=== PATIENT | female | born 1965 | race Caucasian/White ===

== ENCOUNTER 2020-04-20 15:05 | Outpatient (CLI) | payer OTHER, BC, SELFPAY ==
--- NOTE | ~2020-04-20 | MM_ITS ---
EXAMINATION: MM screening butch BI w tal HISTORY: Screening mammogram, interval breast implant removal TECHNIQUE: Craniocaudal and mediolateral oblique 3-D tomosynthesis images were obtained and synthetic 2-D images were generated. CAD analysis was submitted and interpreted. COMPARISON: 12/20/2018, 07/18/2017, 03/16/2016 BREAST PARENCHYMAL COMPOSITION: The breasts are almost entirely fatty. FINDINGS: The breast implants have been removed. There is no evidence of suspicious mass, calcificati on, or architectural distortion to suggest malignancy in either breast. There has been no suspicious interval change. IMPRESSION: 1. No mammographic evidence of malignancy. 2. Recommend routine screening mammography in one year. BI-RADS Category 1: Negative Reviewed, dictated and finalized at location A. ET PRESSMAN
== END 2020-04-20 15:06 | disposition home or self-care (01) ==
LOC: ANHIMG 15:08
PROVIDERS: PCP Family Medicine; Visit Provider Obstetrics & Gynecology
DX: Z12.31 Encounter for screening mammogram for malignant neoplasm of breast (principal)
CPT/HCPCS: 77063; 77067

== ENCOUNTER → 2021-04-17 10:53 | Outpatient (CLI) | payer OTHER, BC, SELFPAY ==
--- NOTE | ~2021-04-17 | US_ITS ---
EXAMINATION: US soft tissue LE RT DATE: 04/17/2021 11:57 INDICATION: Focal soft tissue swelling in the right lower limb medial to the ankle. TECHNIQUE: Multiple grayscale and Doppler ultrasound images of the right lower limb were obtained. COMPARISON: None FINDINGS: In the patient's area of concern, there is a 3.5 x 2.5 x 3.1 cm heterogeneous, predominantl y hyperechoic mass. IMPRESSION: 1. 3.5 cm mass medial to the right ankle, which may be benign or less likely malignant. MRI without a nd with contrast is recommended. Reviewed, dictated and finalized at location A. R CUTTER IMPRESSION: 1. 3.5 cm mass medial to the right ankle, which may be benign or less likely ma lignant. MRI without and with contrast is recommended.
== END ==
PROVIDERS: PCP Family Medicine; Visit Provider Physician Assistant Medical
DX: M25.871 Other specified joint disorders, right ankle and foot (principal); M79.89 Other specified soft tissue disorders
CPT/HCPCS: 76882

== ENCOUNTER 2021-04-22 16:58 | Outpatient (CLI) | payer OTHER, BC, SELFPAY ==
--- NOTE | ~2021-04-22 | MM_ITS ---
EXAMINATION: MM screening [facility] BI w tal HISTORY: Screening mammogram TECHNIQUE: Craniocaudal and mediolateral oblique 3-D tomosynthesis images were obtained and synthetic 2-D images were generated. CAD analysis was submitted and interpreted. COMPARISON: 04/20/2020, 12/20/2018 BREAST PARENCHYMAL COMPOSITION: The breasts are almost entirely fatty. FINDINGS: There is no evidence of suspicious mass, calcification, or architectural distortion to sugg est malignancy in either breast. There has been no suspicious interval change. IMPRESSION: 1. No mammographic evidence of malignancy. 2. Recommend routine screening mammography in one year. BI-RADS Category 1: Negative Reviewed, dictated and finalized at location A. T MAKER
== END 2021-04-22 16:59 | disposition home or self-care (01) ==
PROVIDERS: PCP Family Medicine; Visit Provider Obstetrics & Gynecology
DX: Z12.31 Encounter for screening mammogram for malignant neoplasm of breast (principal)
CPT/HCPCS: 77063; 77067

== ENCOUNTER → 2021-05-07 15:24 | Outpatient (CLI) | payer OTHER, BC, SELFPAY ==
--- NOTE | ~2021-05-07 | MR_ITS ---
EXAMINATION: MR ankle RT wo/w con DATE: 05/07/2021 16:33 INDICATION: Right ankle lump. TECHNIQUE: Magnetic resonance imaging (MRI) of the right ankle was performed without and with 19 mm M ultiHance intravenous contrast. Sequences included axial, coronal, and sagittal T2-weighted FS FSE an d T1-weighted FSE, axial T1-weighted FS FSE, and axial and sagittal postcontrast T1-weighted FS FSE. COMPARISON: Ultrasound 04/17/2021 FINDINGS: Bone alignment is normal. No fracture. There is mild midfoot osteoarthritis. No joint effusion. Plant ar fasciitis is noted. Centered in Kager fat pad, there is a 5.3 x 2.6 x 9.8 cm mass containing fat a nd enhancing soft tissue. IMPRESSION: 1. 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 Reviewed, dictated and finalized at location A. OL CLEANER
[2021-05-07 15:54] LABS: Estimated Glomerular Filt Rate > 60
== END ==
PROVIDERS: PCP Family Medicine; Visit Provider Physician Assistant Medical
DX: M25.871 Other specified joint disorders, right ankle and foot (principal); R22.41 Localized swelling, mass and lump, right lower limb
CPT/HCPCS: 73723; A9577

== ENCOUNTER → 2022-06-03 11:03 | Outpatient (CLI) | payer OTHER, BC, SELFPAY ==
--- NOTE | ~2022-06-03 | MM_ITS ---
EXAMINATION: MM screening butch BI w tal HISTORY: Screening mammogram TECHNIQUE: Craniocaudal and mediolateral oblique 3-D tomosynthesis images were obtained and synthetic 2-D images were generated. CAD analysis was submitted and interpreted. COMPARISON: 04/22/2021, 04/20/2020, 12/10/2018 bilateral screening mammogram examinations BREAST PARENCHYMAL COMPOSITION: The breasts are almost entirely fatty. FINDINGS: Bilateral circumscribed low-density stable axillary tail lymph nodes. There is no evidence of suspicious mass, calcification, or architectural distortion to suggest malignancy in either breast . There has been no suspicious interval change. IMPRESSION: 1. No mammographic evidence of malignancy. 2. Recommend routine screening mammography in one year. BI-RADS Category 1: Negative Reviewed, dictated and finalized at location A. CTOR OF STUDENT FINANCIAL AID
== END ==
PROVIDERS: PCP Obstetrics & Gynecology; Visit Provider Obstetrics & Gynecology
DX: Z12.31 Encounter for screening mammogram for malignant neoplasm of breast (principal)
CPT/HCPCS: 77063; 77067

== ENCOUNTER → 2023-01-06 13:23 | Outpatient (CLI) | payer OTHER, BC, SELFPAY ==
--- NOTE | ~2023-01-06 | MR_ITS ---
EXAMINATION: MR ankle RT wo/w con DATE: 01/06/2023 14:15 INDICATION: Localized swelling, mass and lump, right lower limb. TECHNIQUE: Magnetic resonance imaging (MRI) of the right ankle was performed without and with 19 mL M ultiHance intravenous contrast. Sequences included sagittal PD-weighted FS FSE, sagittal PD-weighted FSE, coronal PD-weighted FS FSE, coronal PD-weighted FSE, axial PD-weighted FS FSE, and axial PD-weig hted FSE. COMPARISON: Right ankle MRI 05/07/2021 FINDINGS: Medial ankle ligaments: The superficial and deep components of the deltoid ligament are normal. Lateral ankle ligaments: The anterior and posterior talofibular ligaments, calcaneofibular ligament, and anterior and posterio r tibiofibular ligaments are normal. Tendons: The peroneal tendons, anterior and medial ankle tendons, and Achilles tendon are normal. Plantar fascia: There is thickening of the central band of plantar fascia, consistent with fasciitis. There is an ent hesophyte at the calcaneal attachment. Bones/other: Bone alignment is normal. No fracture. The talar dome is normal. 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 In Kager fat pad, there is a 4.8 x 2.2 x 5.6 cm lipoma. No contrast en hancement. There are surgical changes of partial resection. A skin marker overlies this area. Fluid: There is no joint effusion. IMPRESSION: 1. 4.8 x 2.2 x 5.6 cm lipoma in [place]ager fat pad with changes of partial resection. Reviewed, dictated and finalized at location B. IMPRESSION: 1. 4.8 x 2.2 x 5.6 cm lipoma in [place]ager fat pad with changes of partial resection .
== END ==
DX: D17.23 Benign lipomatous neoplasm of skin and subcutaneous tissue of right leg (principal)
CPT/HCPCS: 73723; A9577

== ENCOUNTER 2023-04-07 05:19 | Day surgery (SDC) | payer OTHER, BC, SELFPAY ==
[2023-03-27 15:34] VITALS: BMI 39.5
--- NOTE | 2023-04-07 08:55 | P.PNAN_ITS ---
Anes - Initial Pre Proc Eval Procedure: Operation Date: 04/07/23 12:30 Proposed Procedures p Screening Colonoscopy - Milo Meeks MD Date/Time: 04/07/23 08:55 Surgeon: Milo Meeks MD Pre Op Diagnosis: neoplasm screening Patient Data Age: 57 Gender: F Height: 1.57 m Weight: 98 kg Allergies Allergy/AdvReac Type Severity Reaction Status Date / Time hydrocodone Allergy Unknown Unknown Verified 04/07/23 11:11 Penicillins Allergy Unknown Unknown Verified 04/07/23 11:11 Home Medications Medication Instructions Recorded Confirmed Type bupropion HCl 150 mg tablet,12 hr 150 mg PO BID #90 tabs 08/01/22 03/27/23 Rx sustained-release lorazepam 0.5 mg tablet 0.5 mg PO DAILY PRN anxiety #10 08/15/22 03/27/23 Rx tabs Patient hx anesthesia problems: none Family hx anesthesia problems: none Results Review: All pre-operative results and documents have been reviewed as part of the pre- operative evaluation. [facility] Past Medical History Medical History Abnormal MRI Abnormal Pap smear of cervix 11/03/2014 LGSIL Anxiety BMI 38.0-38.9,adult BMI 39.0-39.9,adult Elevated blood pressure reading with diagnosis of hypertension History of breast implant removal (~07/2019) Nasal congestion Surgical History Surgical History History of breast augmentation (02/18/11) History of 1986, 1993, 1995 History of cholecystectomy History of colposcopy with cervical biopsy (12/04/14) no bx History of orthopedic surgery R ankle mass removal History of total abdominal hysterectomy TIMOTEO w/1 oophorectomy History of total knee replacement 2013 (R) knee 2015 (L) knew Family History Family History Grandparent Hypertension Family history of malignant neoplasm of breast paternal grandmother Family history of coronary artery disease Diabetes mellitus Mother Hypertension Father Hypertension Other Family history of malignant neoplasm of male breast Social History Social History (Reviewed 01/16/23 @ 09:46 by LIZBETH Farrar Smoking status: Never smoker Alcohol intake: current Substance use: never Substance use type: does not use Living arrangements: with family Occupation/Education: retired Gender identity (if verbalized by the patient): Female Sexual Orientation (if Verbalized by the Patient): Straight or Heterosexual Spiritual care concerns: No Anes - Eval Final PreProcedure Day of Procedure 04/07/23 08:55 Patient weight: obese Heart: regular rate and rhythm Lungs: clear to auscultation Airway: Mallampati scale class II Neurological: alert and oriented Last oral intake: >/= 8 hours ASA classification: II Emergent: no Anesthetic plan: proceed Anesthesia type and monitoring: general GIVS and standard monitoring Results Review: All pre-operative results and documents have been reviewed as part of the pre- operative evaluation. Informed Consent: The patient's anesthetic plan and its attendant risks and benefits were discussed with the patient/family/POA. Questions were solicited and answers provided to the satisfaction of the patient/fami
[2023-04-07 11:13] VITALS: BP 160/79; PULSE 101; RESP 20; TEMP 36.9; O2SAT 98
--- NOTE | 2023-04-07 11:15 | PM.HPGS ---
History of Present Illness History of Present Illness Consent: Risks, benefits, and alternatives have been discussed and questions answered. Patient agrees to proceed with procedure. Chief complaint: neoplasm screening Narrative: Alva Osorio is a 57 year old female Presents for screening colonoscopy. Patient has current weight appetite bowel movements are normal. She denies abdominal pain. She has had no bleeding. Family history noncontributory. Review of Systems Review of Systems: Review of systems noncontributory. [facility] Past Medical History Medical History Abnormal MRI Abnormal Pap smear of cervix 11/03/2014 LGSIL Anxiety BMI 38.0-38.9,adult BMI 39.0-39.9,adult Elevated blood pressure reading with diagnosis of hypertension History of breast implant removal (~07/2019) Nasal congestion Surgical History Surgical History History of breast augmentation (02/18/11) History of 1986, 1993, 1995 History of cholecystectomy History of colposcopy with cervical biopsy (12/04/14) no bx History of orthopedic surgery R ankle mass removal History of total abdominal hysterectomy TIMOTEO w/ oophorectomy History of total knee replacement 2013 (R) knee 2015 (L) knew Family History Family History Grandparent Hypertension Family history of malignant neoplasm of breast paternal grandmother Family history of coronary artery disease Diabetes mellitus Mother Hypertension Father Hypertension Other Family history of malignant neoplasm of male breast Social History Social History Smoking status: Never smoker Alcohol intake: current Substance use: never Substance use type: does not use Living arrangements: with family Occupation/Education: retired Gender identity (if verbalized by the patient): Female Sexual Orientation (if Verbalized by the Patient): Straight or Heterosexual Spiritual care concerns: No Meds Home Medications and Allergies Home Medications Medication Instructions Recorded Confirmed Type bupropion HCl 150 mg tablet,12 hr 150 mg PO BID #90 tabs 08/01/22 03/27/23 Rx sustained-release lorazepam 0.5 mg tablet 0.5 mg PO DAILY PRN anxiety #10 08/15/22 03/27/23 Rx tabs Allergies Allergy/AdvReac Type Severity Reaction Status Date / Time hydrocodone Allergy Unknown Unknown Verified 04/07/23 11:11 Penicillins Allergy Unknown Unknown Verified 04/07/23 11:11 Exam Narrative: Physical exam reveals patient to be alert. Vital signs stable. HEENT exam is unremarkable. Patient is anicteric. Lungs are clear to auscultation and percussion. Heart is without murmur or extra sounds. Abdomen bowel sounds are present soft nontender with no organomegaly. Digital external rectal exam is normal. Assessment and Plan Assessment and plan (1) Screen for colon cancer: Code(s): Z12.11 - Encounter for screening for malignant neoplasm of colon Status: Acute Assessment and Plan: Patient presents for screening colonoscopy. She appears to be at average risk for colon polyps. Further recommendations may be given after endoscopy.
[2023-04-07] MEDS: LACTATED RINGERS 1,000 ML 150 ML IV CONT (11:25)
--- NOTE | 2023-04-07 12:41 | SUR.OPER ---
Multiple bruising noted on left calf area. Dr. Meeks aware.
[2023-04-07] MEDS: SIMETHICONE ORAL SUSPENSION 20 MG/0.3 ML 30 ML BOTTLE 0.6 ML IRRIGATION (12:50)
[2023-04-07 12:55] VITALS: BP 119/70; PULSE 97; RESP 20; O2SAT 98
[2023-04-07 13:05] VITALS: BP 122/78; PULSE 88; RESP 22; O2SAT 99
[2023-04-07 13:15] VITALS: BP 125/75; PULSE 80; RESP 22; O2SAT 99
== END 2023-04-07 13:24 | disposition home or self-care (01) ==
PROVIDERS: PCP Family Medicine; Visit Provider Internal Medicine Gastroenterology
PROC: 0DJD8ZZ Inspection of Lower Intestinal Tract, Via Natural or Artificial Opening Endoscopic (ICD-10-PCS; CPT 45378; principal; 2023-04-07 12:30)
DX: Z12.11 Encounter for screening for malignant neoplasm of colon (principal); K64.8 Other hemorrhoids; F41.9 Anxiety disorder, unspecified; E66.9 Obesity, unspecified; Z68.39 Body mass index [BMI] 39.0-39.9, adult
CPT/HCPCS: 45378; J2704; J7120

== ENCOUNTER 2023-07-19 13:01 | Outpatient (CLI) | payer OTHER, BC, SELFPAY ==
--- NOTE | ~2023-07-19 | MM_ITS ---
EXAMINATION: MM screening butch BI w tal HISTORY: Screening mammogram TECHNIQUE: Craniocaudal and mediolateral oblique 3-D tomosynthesis images were obtained and synthetic 2-D images were generated. CAD analysis was submitted and interpreted. COMPARISON: 06/03/2022, 04/22/2021, 04/20/2020 bilateral screening mammogram examinations BREAST PARENCHYMAL COMPOSITION: The breasts are almost entirely fatty. FINDINGS: There is no evidence of suspicious mass, calcification, or architectural distortion to sugg est malignancy in either breast. There has been no suspicious interval change. IMPRESSION: 1. No mammographic evidence of malignancy. 2. Recommend routine screening mammography in one year. BI-RADS Category 1: Negative Reviewed, dictated and finalized at location B. AUTOMATIC SAWYER
== END 2023-07-19 13:02 ==
PROVIDERS: PCP Obstetrics & Gynecology; Visit Provider Obstetrics & Gynecology
DX: Z12.31 Encounter for screening mammogram for malignant neoplasm of breast (principal)
CPT/HCPCS: 77063; 77067

== ENCOUNTER 2024-11-13 08:54 | Outpatient (CLI) | payer OTHER, BC, SELFPAY ==
--- NOTE | ~2024-11-13 | MM_ITS ---
EXAMINATION: MM screening butch BI w tal HISTORY: Screening TECHNIQUE: Craniocaudal and mediolateral oblique 3-D tomosynthesis images were obtained and synthetic 2-D images were generated. CAD analysis was submitted and interpreted. COMPARISON: Comparison to multiple prior studies sequentially, with oldest reviewed study dated 07/18. BREAST PARENCHYMAL COMPOSITION: Not Dense: The breasts are almost entirely fatty. FINDINGS: There is developing asymmetry in the periareolar location of the left breast. The right alisa ast is stable without evidence for malignancy. IMPRESSION: 1. Developing periareolar asymmetry of the left breast. 2. Additional mammographic views and possible breast ultrasound are recommended. BI-RADS Category 0: Incomplete: Needs additional imaging evaluation. Reviewed, dictated and finalized at location [] IMPRESSION: 1. Developing periareolar asymmetry of the left breast. 2. Additional mammographic views and possible breast ultrasound are recommended . BI-RADS Category 0: Incomplete: Needs additional imaging evaluation.
== END 2024-11-13 08:55 | disposition home or self-care (01) ==
LOC: ANHIMG 08:56
PROVIDERS: PCP Family Medicine; Visit Provider Obstetrics & Gynecology
DX: Z12.31 Encounter for screening mammogram for malignant neoplasm of breast (principal); R92.8 Other abnormal and inconclusive findings on diagnostic imaging of breast
CPT/HCPCS: 77063; 77067

== ENCOUNTER 2024-11-18 09:37 | Outpatient (CLI) | payer OTHER, BC, SELFPAY ==
--- NOTE | ~2024-11-18 | MMUS_ITS ---
EXAMINATION: MM diagnostic butch LT w tal, US breast LT limited HISTORY: Follow-up periareolar asymmetries of the left breast TECHNIQUE: Additional 3-D tomosynthesis images of the left breast were performed and synthetic 2-D im ages were generated. CAD analysis was submitted and interpreted. High resolution Limited left breast ultrasound was performed. COMPARISON: Comparison to multiple prior studies sequentially, with oldest reviewed study dated 01/2019. BREAST PARENCHYMAL COMPOSITION: Not dense: There are scattered areas of fibroglandular density. FINDINGS: MAMMOGRAPHIC FINDINGS: There are persistent asymmetries, although less dense with spot compression views, likely benign. No suspicious calcifications or architectural distortion. ULTRASOUND: Limited left breast ultrasound: In the periareolar location at 10:00 there is a 6 mm cyst. Also at 10 :00 in the periareolar location there is a 4 mm cyst. No suspicious masses to suggest malignancy. IMPRESSION: 1. No evidence for malignancy in the left breast. Benign findings. 2. Routine yearly screening mammogram and regular clinical breast examination are recommended. BI-RADS Category 2: Benign finding(s). Reviewed, dictated and finalized at location A. IMPRESSION: 1. No evidence for malignancy in the left breast. Benign findings. 2. Routine yearly screening mammogram and regular clinical breast examination a re recommended. BI-RADS Category 2: Benign finding(s).
--- OUTSIDE RECORDS SUMMARY | 2024-11-18 10:11 | XMS_ITS | Referral Summary ---
Author Organization [facility] Address [address] [place] [address] Care Team Providers Care Audiovisual Production Specialist Name Role Phone Devin Regan MD Primary Care Provider [phone] Allergies Active Allergy Reactions Criticality Noted Date Comments Amoxicillin Stomach upset Low 12/01/2023 Stomach cramping Penicillins Unknown Medications buPROPion SR (WELLBUTRIN SR) 150 mg 12 hr tablet Take 1 tablet (150 mg total) by mouth 2 (two) times a day as needed (mood) Active multivit-min/fe rrous fumarate (MULTI VITAMIN ORAL)Indication s:health Take 1 tablet by mouth every morning Active aspirin 81 mg enteric coated tablet Take 1 tablet (81 mg total) by mouth 2 (two) times a day for 14 days For blood clot prevention. Take with food. 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, including hip 11/20/2023 Palpable mass of soft tissue of ankle 06/16/2021 Overview (06/16/2021): Added automatically from request for surgery [id number] Low grade squamous intraepit helial lesion (LGSIL) on cervicovaginal cytologic smear 05/17/2021 History of artificial joint 12/14/2015 History of total knee replacement 02/27/2015 Knee pain 08/30/2013 Social History Tobacco Use Types Packs/Day Years Used Date Smoking Tobacco: Never Smokeless Tobacco: Never Alcohol Use Standard Drinks/Week Comments Never 0 (1 standard drink = 0.6 oz pur e alcohol) AUDIT-C Answer Date Recorded Q1: How often do you have a drink containing alcohol? Never 12/14/2023 Q2: How many drinks containi ng alcohol do you have on a typical day when you are drinking? Patient does not drink Q3: How often do you have si x or more drinks on one occasion? Never 12/14/2023 Personal Safety Answer Date Recorded Have you ever been in or are you currently in a harmful physical or emotional relationship or is someone making you feel afraid or unsafe? Denies 12/14/2023 Comments No Sex and Gender Information Value Date Recorded Sex Assigned at Not on file Legal Sex Female 4:58 AM JEWEL SAWYER Gender Identity Female 05/14/2021 3:35 PM JEWEL SAWYER Sexual Orientation Straight 05/14/2021 3: 35 PM JEWEL SAWYER Last Filed Vital Signs Vital Sign Reading Time Taken Comments Blood Pressure 119/68 12/14/2023 4:30 PM CDT Pulse 96 12/14/2023 4:30 PM CDT Temperature 36.4 C (97.5 F) 12/14/2023 4:30 PM CDT Respiratory Rate 12 12/14/2023 4:30 PM CDT Oxygen Saturation 96% 12/14/2023 4:30 PM CDT Inhaled Oxygen Concentration - - Weight 99.8 kg (220 lb) 12/01/2023 1:25 PM CDT Height 157.5 cm (5' 2) 12/01/2023 1:25 PM CDT Body Mass Index 40.24 12/01/2023 1:25 PM CDT Plan of Treatment Not on file Medical Devices Implanted Type Area Oral Therapist Device Identifier Shelf Expiration Date Model / Serial / Lot Tkr Bilateral: Knee Insurance [facility] [id number] [employer] [place] [employer] [place] ACC[place] [facility] [address] Advance Directives For more information, please contact: [phone] * Full Code (Latest Code Status on File) Date Activated Date Inactivated Comments 05/27/2021 2:41 PM 05/28/2021 4:48 AM Care Teams Audiovisual Production Specialist Relationship Specialty Start Date End Date Devin Regan MD PCP - General Family Medicine 05/13/21
--- OUTSIDE RECORDS SUMMARY | 2024-11-18 10:11 | XMS_ITS | Clinical Summary ---
Author Organization [facility] Address [address] [place] [address] Care Team Providers Care Senior Back End Java Developer Name Role Phone Devin Regan MD Primary Care Provider Allergies Active Allergy Reactions Criticality Noted Date [...] (06/16/2021): Added automatically from request for surgery [id number] Low grade squamous intraepit helial lesion (LGSIL) on cervicovaginal cytologic smear 05/17/2021 History of artificial joint 12/14/2015 History of total knee replacement 02/27/2015 Knee pain 08/30/2013 Surgical History Surgery Date Site/Laterality Comments SECTION 1986, 1995, 1993 CHOLECYSTECTOMY unknown HYSTERECTOMY 06/05/1999 - 06/04/2000 TOTAL KNEE ARTHROPLASTY 06/05/2015 - 06/04/20162013 LASIK BREAST SURGERY implants placed and removed PERCUTANEOUS NEEDLE BIOPSY MUSCLE 05/27/2021 N/A MASS EXCISION 06/23/2021 Right ankle COLONOSCOPY 06/05/2022 - 06/04/2023 Medical History Medical History Date Comments PONV (postoperative nausea and vomiting) controlled with medication-zofran Motion sickness Family History Medical History Relation Name Comments Alcohol abuse Paternal Grandfather Family history of alcoholism - (Added by TW Conv) Lung disease Paternal Grandfather Lung tr ouble - (Added by TW Conv) Asthma Paternal Grandmother Joy Pederson Cancer Paternal Grandmother Joy Pederson Family history of malignant neoplasm - (Added by TW Conv) Hypertension Paternal Grandmother Joy Pederson Family history of hypertension - (Added by TW Conv) Anesthesia problems Neg Hx Relation Name Status Comments Paternal Grandfather Paternal Grandmother Joy Pederson Social History Tobacco Use Types Packs/Day Years [...] on file Legal Sex Female 4:58 AM COMMUNICATION INSTRUCTOR Gender Identity Female 05/14/2021 3:35 PM COMMUNICATION INSTRUCTOR Sexual Orientation Straight 05/14/2021 3: 35 PM COMMUNICATION INSTRUCTOR Obstetrics History Last Filed Vital Signs Vital Sign Reading [...] 12/01/2023 1:25 PM CDT Plan of Treatment Health Maintenance Due Date Last Done Comments Breast Cancer Screening-Mammogram 1965 Colon Cancer Screening-Colonoscopy 1965 Depression Screening 1965 Hepatitis C Screening 1965 Hepatitis B Screening 09/28/1983 Regular Well Visit/Exam 18-64 09/28/1983 Zoster Vaccine (2 of 2) 07/05/2021 05/10/2021 Covid-19 Vaccine ( - 2023-2 5 season) 2024 05/10/2021, 09/23/2020, 08/30/2020 Influenza Vaccine (Season Ended) 2025 04/06/2021, 03/21/2013 DTaP/Tdap/Td Vaccine (2 - Td or Tdap) 08/10/2028 08/10/2018 Pneumococcal vaccine <65 Aged Out No longer eligible based on patient's age to complete this topic Medical Devices Implanted Type Area Candlemaker Device Identifier Shelf Expiration Date Model / Serial / Lot Tkr Bilateral: Knee Insurance [facility] [id number] BLUE [place]ESS [place] [employer] [place] [employer] [place] [facility] [address] [facility] [address] Advance Directives For more information, please contact: [phone] * Full Code (Latest Code Status on File) Date Activated Date Inactivated Comments 05/27/2021 2:41 PM 05/28/2021 4:48 AM Care Teams Senior Back End Java Developer Relationship Specialty Start Date End Date Devin Regan MD PCP - General Family Medicine 05/13/21
== END 2024-11-18 09:38 | disposition home or self-care (01) ==
LOC: CHSIMG 09:37
PROVIDERS: PCP Family Medicine; Visit Provider Obstetrics & Gynecology
DX: N64.89 Other specified disorders of breast (principal)
CPT/HCPCS: 76642; 77061; 77065; G0279